=== PATIENT | female | born 1990 | race Caucasian/White ===

== ENCOUNTER 2017-08-05 21:47 | Emergency (ER) | payer MEDICAID ==
--- NOTE | 2017-08-05 22:37 | ED Physician Chart ---
ED Chief Complaint/HPI - Patient Information Date Seen:: 08/05/17 Time Seen:: 22:20 Chief Complaint:: laceration left foot History of Present Illness:: At about 2130 the patient was barefooted and dropped a glass vase. She apparently stepped on a piece of the broken glass. Patient is 3 months . Historian:: Patient Review:: Nurse's Note Reviewed ED Review of Systems - Review of Systems General/Constitutional: No fever, Weight loss Skin: Skin lesions Head: No headache Eyes: No loss of vision ENT: No earache, No sore throat Neck: No neck pain, No swelling Cardio Vascular: No chest pain, No palpitations Pulmonary: No SOB GI: No nausea, No vomiting, No diarrhea Musculoskeletal: No bone or joint pain Endocrine: No polyuria Psychiatric: No prior psych history, No depression, No anxiety Hematopoietic: No bruising Allergic/Immuno: No urticaria Neurological: No syncope, No focal symptoms, No weakness ED Past Medical History - Past Medical History Past Medical History: No significant medical hx Family History: Other (mother has prediabetes) Social History: Other (patient recently stopped smoking and stopped her occasional use of alcohol) Surgical History: None Psychiatricy History: None ED Physical Exam - Physical Examination General/Constitutional: Well-developed, well-nourished, Alert, No distress Head: Atraumatic Eyes: Lids, conjuctiva normal Other Skin comments:: There is an approximately 1 1/2 cm oblique laceration of the distal metatarsal arch of the left foot. The laceration is proximal to the third toe. Edges of the laceration are very well approximated. ENMT: External ears, nose nl Neck: No nuchal rigidity Respiratory: Nl effort/Exclusion, Clear to Auscultation, No Wheeze/Rhonchi/Rales Cardio Vascular: RRR GI: No tenderness/rebounding/guarding : No CVA tenderness Other Extremities comments:: See under skin Neuro/Psych: No focal deficits Misc: Normal back ED Assessment - Assessment General Assessment: Plan was to take one lateral x-ray of the left foot to determine if a glass foreign body was present. I told the patient with abdominal shielding a 1 view x-ray of the foot would have no effect on the fetus but patient declined the x- ray ED Septic Shock - . Is Septic Shock (SBP<90, OR Lactate>4 mmol\L) present?: No ED Reassessment (Disposition) - Reassessment Reassessment Condition:: Unchanged - Diagnosis Diagnosis:: Laceration left foot - Patient Disposition Discharge/Transfer:: Against Medical Advice Condition at Disposition:: Stable, Unchanged
== END 2017-08-05 22:38 | disposition left against medical advice (07) ==
LOC: ER 21:47
DX: S91.312A Laceration without foreign body, left foot, initial encounter (principal); X58.XXXA Exposure to other specified factors, initial encounter; Y93.89 Activity, other specified; Y92.89 Other specified places as the place of occurrence of the external cause; Y99.8 Other external cause status
CPT/HCPCS: Z7502